=== PATIENT | female | born 1990 | race Two or more races ===

== ENCOUNTER 2018-08-18 09:53 | Emergency (ER) | payer OTHER ==
[~2018-08-18] VITALS: Ht 157.5 cm; Wt 72.6 kg
[2018-08-18] MEDS ORDERED: IBUPROFEN 600 MG TABLET. PO ONE (10:30)
--- NOTE | 2018-08-18 10:34 | PHYS DOC ---
Past Medical History Past Medical History: No Pertinent History Past Surgical History: Alcohol Use: None Drug Use: Marijuana Adult General Chief Complaint Chief Complaint: FLU SYMPTOM HPI HPI 27-year-old female presents to ER for complaints of flulike illness which is been ongoing since Monday. She reports her 7-year-old also has flulike illness currently. Patient states on Monday she developed chills and has felt feverish since. Patient states she has not checked her temperature. Patient reports she has had sore throat, sinus congestion and drainage, nonproductive cough, and intermittent diarrhea. She states she has had coughing episodes which has caused her to vomit. Patient states she has been taking TheraFlu denies any ucto-jxs-mjjzzyn medications today for treatment. Patient reports she has been drinking water. Patient denies urinary symptoms. Patient is wanting to have test as she has concerns for . Patient states she has 5-month-old at home and has had unprotected sex. Patient states her ex-boyfriend had called her today stating he had something on his penis. Patient denies any vaginal symptoms, odor, or abnormal bleeding patient is requesting pelvic exam with STD check although she is asymptomatic. Review of Systems Review of Systems Constitutional: Reports chills and feeling feverish. Denies checking her temperature Eyes: Denies change in visual acuity, redness, or eye pain [] HENT: Reports sinus congestion/drainage. Reports sore throat Respiratory: Denies shortness of breath. Reports nonprod. cough Cardiovascular: Denies CP GI: Denies abdominal pain or bloody stools. Reports intermittent nausea with vomiting during coughing episodes. Reports intermittent diarrhea : Denies dysuria or hematuria. Denies vaginal discharge/rash/odor. Denies abnorm. vaginal bleeding Musculoskeletal: Denies back/neck pain or joint pain [] Integument: Denies rash or skin lesions [] Neurologic: Denies headache, focal weakness or sensory changes [] All other systems were reviewed and found to be within normal limits, except as documented in this note. Current Medications Current Medications Current Medications Medications (Trade) Dose Ordered Sig/Marco Start Time Stop Time Status Last Admin Dose Admin Ibuprofen (Motrin) 600 mg 1X ONCE 08/18/18 10:30 08/18/18 10:31 DC 08/18/18 10:37 600 MG Allergies Allergies Allergies Coded Allergies Type Severity Reaction Last Updated Verified No Known Drug Allergies 11/28/14 No Physical Exam Physical Exam Constitutional: Well developed, well nourished, no acute distress, non-toxic appearance. [] HENT: Normocephalic, atraumatic, bilateral ears normal, oropharynx moist- no pharyngeal swelling/erythema, no oral exudates, nose normal. [] Eyes: Pupils equal, conjunctiva normal, no discharge. [] Neck: Normal range of motion, no tenderness, supple, no stridor/gross adenopathy Cardiovascular: Heart rate regular rhythm, no murmur [] Lungs & Thorax: Bilateral breath sounds clear to auscultation. Resp. equal/ nonlabored. No wheezing/rhonchi- no coughing during exam. Abdomen: Bowel sounds normal, soft, no tenderness, no masses, no pulsatile masses. [] Skin: Warm, dry, diaphoretic Back: No tenderness, no CVA tenderness. [] Extremities: No tenderness, no cyanosis, no clubbing, ROM intact, no edema. [] Neurologic: Alert and oriented X 3, normal motor function, normal sensory function, no focal deficits noted. [] Psychologic: Affect normal, judgement normal, mood normal. [] Current Patient Data Vital Signs Lab Values Laboratory Tests Test 08/18/18 10:33 08/18/18 10:35 08/18/18 11:15 POC Urine HCG, Qualitative Hcg negative (Negative) Urine Collection Type Void Urine Color Yellow Urine Clarity Clear Urine pH 6.5 Urine Specific [place] 1.010 Urine Protein Negative mg/dL (NEG-TRACE) Urine Glucose (UA) Negative mg/dL (NEG) Urine Ketones (Stick) Negative mg/dL (NEG) Urine Blood Small (NEG) Urine Nitrite Negative (NEG) Urine Bilirubin Negative (NEG) Urine Urobilinogen Dipstick 0.2 mg/dL (0.2 mg/dL) Urine Leukocyte Esterase Negative (NEG) Urine RBC 1-2 /HPF (0-2) Urine WBC Occ /HPF (0-4) Urine Squamous Epithelial Cells Mod /LPF Urine Bacteria Few /HPF (0-FEW) Chlamydia DNA Probe Negative (Negative) Neisseria gonorrhoeae DNA Probe Negative (Negative) Microbiology 08/18/18 Wet Prep - Final, Complete Microbiology 08/18/18 Wet Prep - Final, Complete EKG EKG [] Radiology/Procedures Radiology/Procedures Pelvic Exam: RN Can Filling Room Sweeper present [id number] Abdomen: Nontender External Genitalia: Normal Skin no rash or lesions Speculum: Normal vaginal mucosa- small amount dark red blood in vaginal vault cervical os closed, no odor Bimanual: No adnexal masses or tenderness, No CMT Course & Med Decision Making Course & Med Decision Making Pertinent Labs reviewed. (See chart for details) 1120: Patient was evaluated in the ER for flulike illness. Symptoms have been ongoing since Monday so no flu testing done and patient was comfortable with this. Patient reports her 7-year-old daughter has similar symptoms- so discussed probable viral illness. Patient was provided with dose of ibuprofen. Patient voiced concerns that her boyfriend had reported he had irritation on his penis had and so she requested pelvic exam with testing to be done. Patient had negative UCG. Patient states she has 5-month-old child at home and is only had light periods monthly so is uncertain as to her last menstrual cycle. UA was negative for infection- UCG neg. Wet mount with findings consistent with BV which was discussed along with plans for Rx for Flagyl with d/c paperwork. In- depth conversation had with patient regarding condom use as patient and her boyfriend have been switching condoms and not sticking with one brand. Patient stated she has had no vaginal issues and so testing was more for reassurance. Pt aware GC/Chlam. results pending and she should f/u in 2-3 days for results. Education provided on s&s to return to ER for d/c instructions were discussed. Dragon Disclaimer Dragon Disclaimer This electronic medical record was generated, in whole or in part, using a voice recognition dictation system. Departure Departure Impression: Primary Impression: Viral syndrome Additional Impressions: Concern about STD in female without diagnosis Bacterial vaginosis Referrals: NO PCP (PCP) Patient Instructions: Bacterial Vaginosis, Sexually Transmitted Disease, Viral Syndrome Additional Instructions: Drink plenty of water and eat well-balanced meals. Tylenol and/or ibuprofen as directed on container for fever and pain control. You are being provided with educational information on sexually transmitted diseases- you are being treated for a bacterial vaginosis. You have test pending which results will be back in 2-3 days follow-up on those results. If symptoms persist or with concerns follow-up with your primary care physician. As discussed try to find a condom which is less irritating and use just that single brand. Scripts Metronidazole (FLAGYL) 500 Mg Tablet 1 TAB PO BID, #14 TAB 0 Refills No drinking alcohol while taking this medication and for 3 days following completion of prescription Prov: NI GREGG APRN 08/18/18 Problem Qualifiers NI GREGG APRN Aug 18, 2018 10:34
[2018-08-18 10:45] LABS: BILIRUBIN,URINE NEGATIVE (NEG); CLARITY,URINE CLEAR; COLOR,URINE YELLOW; NITRITE,URINE NEGATIVE (NEG); PH,URINE 6.5; PROTEIN,URINE NEGATIVE (NEG-TRACE); UROBILINOGEN,URINE 0.2 mg/dL (0.2 mg/dL)
[2018-08-18 10:55] LABS: BACTERIA,URINE FEW /HPF (0-FEW); SQUAMOUS EPITHELIAL CELL,UR MOD /LPF; WBC,URINE OCC /HPF (0-4)
[2018-08-18] MEDS ORDERED: METR500T PO (12:19)
[2018-08-18 12:25] VITALS: BP 133/56
[2018-08-20 13:19] LABS: GC PROBE Negative (Negative)
== END 2018-08-18 12:25 | disposition home or self-care (01) ==
LOC: ER 09:53
DX: B34.9 Viral infection, unspecified (principal); N76.0 Acute vaginitis; B96.89 Other specified bacterial agents as the cause of diseases classified elsewhere; Z20.2 Contact with and (suspected) exposure to infections with a predominantly sexual mode of transmission
CPT/HCPCS: 36415; 81001; 81025; 87491; 87591; 99283; Q0111